=== PATIENT | male | born 1990 | race Caucasian/White ===

== ENCOUNTER 2017-03-04 17:37 | Emergency (ER) | payer OTHER ==
[~2017-03-04] VITALS: Ht 170.2 cm; Wt 79.4 kg
[2017-03-04 17:48] VITALS: BP 150/99
[2017-03-04] MEDS ORDERED: FISH OIL 1,2001 EAC2 PO (19:16)
[2017-03-04] MEDS ORDERED: ADVIL MIGRAINE200 M1 PO (19:16)
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
[2017-03-04] MEDS ORDERED: ROBAXIN500 M1 PO (19:51)
== END 2017-03-04 19:57 ==
LOC: ERH 17:37
DX: S39.012A Strain of muscle, fascia and tendon of lower back, initial encounter (principal); V49.40XA Driver injured in collision with unspecified motor vehicles in traffic accident, initial encounter; Y92.9 Unspecified place or not applicable